=== PATIENT | male | born 1945 | race Hispanic/Latino ===

== ENCOUNTER 2022-10-22 05:48 | Observation (INO) | payer OTHER, MEDICARE ==
[2022-10-21 09:43] VITALS: BP 152/67
[2022-10-21 09:54] LABS: BASOPHILS % (AUTO) 1.1 % (0.0-5.0); EOSINOPHILS % (AUTO) 2.3 % (0.0-8.0); HEMATOCRIT 43.6 % (42-54); MEAN CORPUSCULAR HEMOGLOBIN 29.7 pg (27.0-33.0); MEAN CORPUSCULAR HGB CONC 33.3 g/dL (32.0-36.0); MEAN CORPUSCULAR VOLUME 89.3 fL (79-99); MONOCYTES % (AUTO) 9.7 % (3.0-13.0); NEUTROPHILS % (AUTO) 49.6 % (40.0-77.0); PLATELET COUNT (AUTO) 222 K/uL (130-400); RED BLOOD CELL COUNT(AUTO) 4.88 MIL/uL (4.50-6.20); RED CELL DISTRIBUTION WIDTH 13.2 % (11.0-15.5); WHITE BLOOD COUNT (AUTO) 6.4 K/uL (4.8-10.8)
[2022-10-21 09:59] LABS: APPEARANCE,URINE CLEAR (CLEAR); BILIRUBIN,URINE NEGATIVE (NEGATIVE); COLOR,URINE LIGHT-YELLOW (YELLOW); GLUCOSE, URINE (UA) NEGATIVE (NEGATIVE); KETONES,URINE NEGATIVE (NEGATIVE); LEUKOCYTE ESTERASE ,URINE NEGATIVE Leu/uL (NEGATIVE); NITRATE,URINE NEGATIVE (NEGATIVE); OCCULT BLOOD,URINE NEGATIVE (NEGATIVE); PH,URINE 5.5 (5.0-8.0); PROTEIN,URINE NEGATIVE (NEGATIVE); UROBILINOGEN,URINE 0.2 mg/dL (0.2-1.0)
[2022-10-21 10:09] LABS: INR 0.99 (0.85-1.15); PROTHROMBIN TIME 10.8 SEC (9.6-11.6)
[2022-10-21 10:10] LABS: PARTIAL THROMBOPLASTIN TIME 26.3 SEC (26.3-35.5)
[2022-10-21 10:26] LABS: ALBUMIN 3.9 g/dL (3.5-5.0); CARBON DIOXIDE 27 mmol/L (21-32); CHLORIDE 104 mmol/L (101-111); CREATININE 1.2 mg/dL (0.5-1.5); CRP QUANTITATIVE < 2.00 mg/L (0.00-9.0); GLOMERULAR FILTR. RATE CALC 63 mL/min (>60); GLUCOSE,RANDOM 115 mg/dL (70-105); POTASSIUM 4.3 mmol/L (3.5-5.1); SODIUM SERUM 140 mmol/L (136-145); UREA NITROGEN, BLOOD 19 mg/dL (7-18)
[~2022-10-22] VITALS: Ht 175.3 cm; Wt 95.1 kg
[2022-10-22] VITALS (25 sets, daily range): BP systolic 111–152; BP diastolic 57–98
[~2022-10-22 05:48] MED LIST: DEXAMETHASONE SOD PHOSPHATE 4 MG/ML 1ML VIAL ONE; KETOROLAC 30MG VIAL (30MG/ML) ONE; LORA10TA7 PO; LOSA50TA64 PO; ROPIVACAINE 0.5% 5MG/ML 30ML IJ ONE; ROSU10TA22 PO; TRANEXAMIC ACID 1000MG/10ML ONE
[2022-10-22] MEDS ORDERED: SUCCINYLCHOLINE 200MG/10ML SYR ONE (06:45)
[2022-10-22] MEDS ORDERED: PROPOFOL 10 MG/ML 20ML VIAL IV ONE (06:45)
[2022-10-22] MEDS ORDERED: GLYCOPYRROLATE 1 MG/5 ML SYRINGE ONE (06:45)
[2022-10-22] MEDS ORDERED: DEXAMETHASONE SOD PHOSPHATE 10MG/ML 1ML VIAL ONE (06:45)
[2022-10-22] MEDS ORDERED: LIDOCAINE PF 100MG/5ML (2%) SYRINGE 5ML ONE (06:45)
[2022-10-22] MEDS ORDERED: ONDANSETRON 4MG INJ ONE ×2 (06:45→11:50)
[2022-10-22] MEDS ORDERED: FENTANYL CITRATE PF 50 MCG/1 ML 2ML VIAL ONE (06:46)
[2022-10-22] MEDS ORDERED: ROCURONIUM 10MG/1ML SYR 10 MG/ML ML ONE (06:46)
[2022-10-22] MEDS ORDERED: LACTATED RINGERS 1000ML 1,000 ML IV ONE (06:46)
[2022-10-22] MEDS ORDERED: NEOSTIGMINE 5MG/5ML SYR IV ONE (06:46)
[2022-10-22] MEDS ORDERED: ROPIVACAINE 0.5% 5MG/ML 30ML IJ ONE (06:47)
[2022-10-22] MEDS: CEFAZOLIN SODIUM 2 GM VIAL ONE ×2 (06:48→09:25)
[2022-10-22] MEDS ORDERED: PHENYLEPHRINE HCL 10 MG/ML 1ML VIAL IV ONE (06:50)
[2022-10-22] MEDS ORDERED: MIDAZOLAM HCL 1 MG/ML 2ML VIAL ONE (06:59)
[2022-10-22] MEDS ORDERED: KETOROLAC 15MG/ML VIAL (15MG/ML) ONE (11:51)
[2022-10-22] MEDS ORDERED: MEPERIDINE-PF 25 MG/ML SYG ONE (11:51)
[2022-10-22] MEDS ORDERED: HYDROCODONE/ACETAMINOPHEN 5/325 MG TAB PO PRN (12:00)
[2022-10-22] MEDS ORDERED: POTASSIUM CHLORIDE 20MEQ/100ML 100 ML IV PRN (12:00)
[2022-10-22] MEDS ORDERED: ONDANSETRON 4MG INJ IVP PRN (12:00)
[2022-10-22] MEDS ORDERED: DiphenhydrAMINE HCL 50 MG/ML VIAL IVP PRN (12:00)
[2022-10-22] MEDS ORDERED: FERROUS FUMARATE 324 MG TABLET PO PRN (12:00)
[2022-10-22] MEDS ORDERED: KCL 20 MEQ ERTAB PO PRN (12:00)
[2022-10-22] MEDS ORDERED: POTASSIUM CHLORIDE 10% ELIXIR 20 MEQ/15 ML UDCUP PO PRN (12:00)
[2022-10-22] MEDS ORDERED: LIDOCAINE HCL-MPF 1% 2ML VIAL IV PRN (12:00)
[2022-10-22] MEDS ORDERED: CYCLOBENZAPRINE HCL 10 MG TABLET PO PRN (12:00)
[2022-10-22] MEDS ORDERED: 0.9%NACL 1000ML 1,000 ML IV SCH (12:00)
[2022-10-22] MEDS ORDERED: CALCIUM CARB 500MG PO PRN (12:00)
[2022-10-22] MEDS ORDERED: KETOROLAC 15MG/ML VIAL (15MG/ML) IV PRN (12:00)
[2022-10-22] MEDS: GABAPENTIN 100 MG CAPSULE PO SCH ×2 (15:23→20:34)
[2022-10-22] MEDS: CEFAZOLIN SODIUM 1 GM VIAL IVP SCH (17:04)
[2022-10-22] MEDS: ROSUVASTATIN 10 MG PO SCH (20:34)
[2022-10-22] MEDS: DOCUSATE SODIUM 100 MG CAP PO SCH (20:34)
[2022-10-23 00:18] VITALS: BP 128/56
[2022-10-23] MEDS: CEFAZOLIN SODIUM 1 GM VIAL IVP SCH (00:51)
[2022-10-23 03:44] VITALS: BP 144/72
[2022-10-23 05:19] LABS: HEMATOCRIT 37.2 % (42-54); MEAN CORPUSCULAR HEMOGLOBIN 29.5 pg (27.0-33.0); MEAN CORPUSCULAR HGB CONC 34.1 g/dL (32.0-36.0); MEAN CORPUSCULAR VOLUME 86.3 fL (79-99); RED BLOOD CELL COUNT(AUTO) 4.31 MIL/uL (4.50-6.20); RED CELL DISTRIBUTION WIDTH 12.9 % (11.0-15.5); WHITE BLOOD COUNT (AUTO) 14.6 K/uL (4.8-10.8)
[2022-10-23 05:34] LABS: CREATININE 1.4 mg/dL (0.5-1.5); POTASSIUM 4.6 mmol/L (3.5-5.1)
[2022-10-23 08:00] VITALS: BP 154/68
[2022-10-23] MEDS: DOCUSATE SODIUM 100 MG CAP PO SCH ×2 (09:20→20:11)
[2022-10-23] MEDS: ASPIRIN 325MG TAB PO SCH (09:20)
[2022-10-23] MEDS: LORATADINE 10 MG TABLET PO SCH (09:20)
[2022-10-23] MEDS: POLYETHYLENE GLYCOL 3350 17 GM POWD.PACK PO SCH (09:20)
[2022-10-23] MEDS: LOSARTAN 50 MG TABLET PO SCH (09:20)
[2022-10-23] MEDS: GABAPENTIN 100 MG CAPSULE PO SCH ×3 (09:20→20:12)
[2022-10-23 11:55] VITALS: BP 149/71
[2022-10-23] MEDS ORDERED: FAMOTIDINE 20MG TAB PO ONE (14:00)
[2022-10-23 15:47] VITALS: BP 143/64
[2022-10-23 20:00] VITALS: BP 145/64
[2022-10-23] MEDS: FAMOTIDINE 20MG TAB PO SCH (20:11)
[2022-10-23] MEDS: ROSUVASTATIN 10 MG PO SCH (20:13)
[2022-10-24] VITALS: BP 158/73
[2022-10-24 04:00] VITALS: BP 152/75
[2022-10-24 08:33] VITALS: BP 158/69
[2022-10-24] MEDS: FAMOTIDINE 20MG TAB PO SCH (09:30)
[2022-10-24] MEDS: DOCUSATE SODIUM 100 MG CAP PO SCH (09:30)
[2022-10-24] MEDS: GABAPENTIN 100 MG CAPSULE PO SCH (09:30)
[2022-10-24] MEDS: LOSARTAN 50 MG TABLET PO SCH (09:30)
[2022-10-24] MEDS: LORATADINE 10 MG TABLET PO SCH (09:31)
[2022-10-24] MEDS: ASPIRIN 325MG TAB PO SCH (09:31)
[2022-10-24] MEDS: POLYETHYLENE GLYCOL 3350 17 GM POWD.PACK PO SCH (09:31)
[2022-10-24] MEDS ORDERED: DOCU-116 PO (10:58)
[2022-10-24] MEDS ORDERED: CYCL-309 PO (10:58)
[2022-10-24] MEDS ORDERED: ASPI-1026 PO (10:58)
[2022-10-24] MEDS ORDERED: POLY17PO4 PO (10:58)
[2022-10-24] MEDS ORDERED: HYDR-4060 PO (10:58)
[2022-10-24] MEDS ORDERED: GABA100C PO (10:58)
[2022-10-24 11:23] VITALS: BP 153/70
[2022-10-25] MEDS ORDERED: BISACODYL 10 MG SUPP.RECT RC PRN (12:00)
== END 2022-10-24 13:50 | disposition home health service (06) ==
LOC: DAH 05:48 → DAHIP 05:49 → DAH 05:49 → 4CH 12:40
PROVIDERS: ADMIT Student in an Organized Health Care Education/Training Program; ATTEND Student in an Organized Health Care Education/Training Program
DX: M17.11 Unilateral primary osteoarthritis, right knee (principal); Z20.822 Contact with and (suspected) exposure to COVID-19; D62 Acute posthemorrhagic anemia; Z79.899 Other long term (current) drug therapy
CPT/HCPCS: 82040; 80048 ×2; 85025; 85610; 85730; 87088; 84134; 86140; 87426; 81003; 36415 ×2; 87641; 27447; 96374; 73560; 97161; 97039 ×5; 97530 ×4; 96376; 85027; 97116 ×4; J1100 ×2; G0378 ×48; A4663; A4215 ×2; J7120; J3010; J0690 ×3; J3490 ×3; J0330; J2710; J2001; J2250; J2704; J2405 ×2; J1885 ×2; J2175; J2795 ×2; J2370; G0168; A4649 ×4; C1776; A6255; A5120; A4223; A4222; A4221